=== PATIENT | female | born 2000 | race Asian ===

== ENCOUNTER 2025-05-09 06:20 | Inpatient (IN) ==
[2025-05-09 07:14] LABS: HCT - HEMATOCRIT 36.5 % (37.0-47.0); HGB - HEMOGLOBIN 11.9 g/dL (12.0-16.0); MEAN PLATELET VOLUME 9.6 fL (7.9-10.8); NRBC ABSOLUTE COUNT (AUTO) 0.00 x10^3/uL; NUCLEATED RED BLOOD CELLS AUTO 0.0 /100WBC; PLT - PLATELET COUNT 213 10^3/uL (130-450); RED CELL DISTRIBUTION WIDTH 14.5 % (12.0-15.0)
--- NOTE | 2025-05-09 07:26 | HISTORY & PHYSICAL EXAMINATION ---
Admit History Smoking Status: Never smoker Other Maternal History Other Maternal History: Patient is a 25-year-old G2, P1 at 39 weeks 0 days gestation presenting today for repeat low-transverse section and tubal ligation.. She has good movement. Denies loss of fluid. No FAYE/BV or RUQP. No vaginal bleeding. Denies nausea and vomiting. Denies urinary urgency or dysuria. All other symptoms reviewed and were negative except per HPI. Course LMP: 08/10/2024 KIM by LMP: 05/17/2025 Initial US Date 01/05/2025, US Age 21 weeks 2 days gestation, KIM by ultrasound: 05/16/2025 Final KIM: 05/17/2025 by LMP consistent with 21-week ultrasound Waiting additional records for early ultrasound. Insufficient weight gain. EFW 04/03- 2356.5g, 55.5th%ile Transfer of care No records available, Marginal cord insertion. 04/03 No previa Pre- Weight: 145lb BMI: 25.7 Blood type: A+ Antibody: Negative CBC: PLT 220 HCT 33.2 HGB 11.4 RUB: Immune VZV: Immune HBsAg: Neg HepC: NR RPR/AB-EIA: NR HIV: NR PAP:10/13/2024 per pt GC/CT: HSV: denies Genetic testing: MaterniT- Negative, AFP - Negative Covid: Flu: received this season FAS: 01/06/2025 Placenta: Posterior; w/cord 1.1 from margin Cord: 3VC LELE: 11.0 EFW: 408g 50gm OGCT: 108 TDAP: 8 Breast Pump:has one 3rd trimester H/H/PLT 9.9/29.5/234 RPR:NR GBS:Negative Delivery plan: Repeat C/S. Contraception: Condoms. Partner vasectomy. Will discuss tubal ligation again as she is having a repeat . Leaning towards this. Consents signed previously HPI Current : Vital Signs Temperature 36.5 C 05/09/25 06:54 Pulse Rate 100 05/09/25 06:54 Respiratory Rate 16 05/09/25 06:54 Blood Pressure 116/75 05/09/25 06:54 O2 Saturation 99 05/09/25 06:54 Meds/Allgy Home Medications Ambulatory Orders Medication Instructions Recorded Confirmed vits no.126-ferrous fum tab PO QDAY 12/23/24 05/03/25 28 mg iron-folic acid 800 mcg tablet (Classic ) ferrous sulfate 325 mg (65 mg 325 mg PO Q OTHER DAY 05/03/25 iron) tablet (Iron (ferrous sulfate)) Allergies Allergies Allergy/AdvReac Type Severity Reaction Status Date / Time No Known Drug Allergies Allergy Verified 04/26/25 14:26 PFSH Active Problems All Active Problems (Updated 05/09/25 @ 08:17 by Sarmad Rod MD) Encounter for sterilization (Acute) 39 weeks gestation of (Acute) Insufficient weight gain during (Acute) Maternal care for low transverse scar from previous delivery (Acute) Medical History Medical History (Updated 05/09/25 @ 08:17 by Sarmad Rod MD) Encounter for other specified screening Surgical History Surgical History Previous section Family History Family History Grandfather Lung cancer Social History Social History (Updated 04/19/25 @ 14:24 by Misti Yanez MA) Smoking Status: Never smoker Second hand tobacco smoke exposure: No Do you dip or chew tobacco?: No Living arrangement: At home Living Condition: With spouse/s.o. Level: Independent ETOH Use: None Substance Use: denies use Are you sexually active?: Yes Occupation - Current: Homemaker Review of Systems Status of ROS: 10 or more systems reviewed and unremarkable except as noted in history and below Physical Abdominal Exam Vital Signs: Temp Pulse Resp BP Pulse Ox 36.5 C 100 16 116/75 99 05/09/25 06:54 05/09/25 06:54 05/09/25 06:54 05/09/25 06:54 05/09/25 06:54 Other Notes Labor Progress Note/Additional Text: General: Alert, oriented, no acute distress Head: Normal cephalic atraumatic Eyes: PERRLA, extraocular motions intact. Respiratory: Normal rate of respiration. No accessory muscle use, normal respiratory effort. Abdomen: Gravid, nontender, nondistended Extremities: Normal range of motion Neuro: Oriented x3. Normal movements Psych: Appropriate mood and affect. Normal judgment and insight FHT: BPM baseline, moderate variability, accelerations present, no decelerations. Reactive NST [place]: Occasional Plan for Labor Plan For Labor I expect patient to be DC'd or transferred within 96 hours.: Yes Conclusion/Plan Problem List (1) Maternal care for low transverse scar from previous delivery: Plan: Plan for repeat low-transverse section and bilateral salpingectomy. section was recommended. Risks, benefits and alternatives were discussed including but not limited to infection, bleeding that may require blood products or hysterectomy for life saving measures, injury to surrounding organs including but not limited to bowel, bladder, ureters, tubes and ovaries and/or the baby. Should injury occur it could require longer/additional surgery to repair. The patient stated understanding and desired to proceed. All questions were answered posed by patient. 2 g cefazolin for surgical prophylaxis. (2) 39 weeks gestation of : Plan: As above (3) Encounter for sterilization: Plan: As above Lab Results 05/09/25 06:35
[2025-05-09] MEDS: LACTATED RINGERS 1,000 ML IV SCH ×3 (07:50→19:09)
[2025-05-09] MEDS ORDERED: CARBOPROST TROMETHAMINE 250 MCG/ML VIAL IM ONE (08:18)
[2025-05-09] MEDS ORDERED: METHYLERGONOVINE 0.2 MG/ML VIAL ONE (08:18)
[2025-05-09] MEDS ORDERED: PHENYLEPHRINE 10 MG/ML VIAL ONE (08:18)
--- NOTE | 2025-05-09 08:28 | ANESTHESIA PROCEDURE NOTE ---
Pre-Anesthesia VS, & Labs Diagnosis Surgical Diagnosis:: previous c/s, desires sterilization Procedure Procedure: repeat c/s with bilateral salpingectomy Vitals Vital Signs: Temp Pulse Resp BP Pulse Ox 36.7 C 95 16 116/75 99 05/09/25 07:22 05/09/25 07:22 05/09/25 06:54 05/09/25 07:22 05/09/25 06:54 NPO NPO: >8 hours Is Patient ?: Yes Lab Results Current Lab Results: Laboratory Tests 05/09/25 06:35: WBC 9.0, RBC 3.76 L, Hgb 11.9 L, Hct 36.5 L, MCV 97.1, MCH 31.6 H, MCHC 32.6, RDW 14.5, Plt Count 213, MPV 9.6, Neut # (Auto) 6.2, Lymph # (Auto) 1.8, [place] # (Auto) 0.7, Eos # (Auto) 0.1, Baso # (Auto) 0.0, Absolute Nucleated RBC 0.00, Nucleated RBC % 0.0, Blood Type A POSITIVE, Antibody Screen NEGATIVE Lab results reviewed: Yes 05/09/25 06:35 Meds/Allgy Home Medications Ambulatory Orders Medication Instructions Recorded Confirmed vits no.126-ferrous fum tab PO QDAY 12/23/24 05/03/25 28 mg iron-folic acid 800 mcg tablet (Classic ) ferrous sulfate 325 mg (65 mg 325 mg PO Q OTHER DAY 05/03/25 iron) tablet (Iron (ferrous sulfate)) Allergies Allergies Allergy/AdvReac Type Severity Reaction Status Date / Time No Known Drug Allergies Allergy Verified 04/26/25 14:26 PFSH Active Problems All Active Problems Encounter for sterilization (Acute) 39 weeks gestation of (Acute) Insufficient weight gain during (Acute) Maternal care for low transverse scar from previous delivery (Acute) Medical History Medical History Encounter for other specified screening Surgical History Surgical History Previous section Family History Family History Grandfather Lung cancer Social History Social History Smoking Status: Never smoker Second hand tobacco smoke exposure: No Do you dip or chew tobacco?: No Living arrangement: At home Living Condition: With spouse/s.o. Level: Independent ETOH Use: None Substance Use: denies use Are you sexually active?: Yes Occupation - Current: Homemaker POLST POLST CPR Status: Attempt Resuscitation (CPR) Level of Medical Intervention: Full Treatment Anesthesia Exam (Expanded) Exam General: Alert, Oriented x3 and Cooperative Dental: WNL Mouth Openin Fingerbreadth Neck Mobility: Normal Mallampati classification: I Thyromental Distance: 4-6 cm Respiratory: Lungs clear Cardiovascular: Regular rate Exam Exam Vital Signs: Vital Signs x48h Temp Pulse Pulse Resp BP BP Pulse Ox 05/09/25 07:22 36.7 C 95 116/75 05/09/25 06:54 36.5 C 100 16 116/75 99 Plan Plan Anesthesia Type: General Consent for Procedure(s) Verified and Reviewed: Yes Code Status: Attempt Resuscitation ASA Classification ASA classification: 2-Mild systemic disease Is this case an emergency?: No
[2025-05-09] MEDS ORDERED: MORPHINE PF 5 MG/10 ML VIAL IT ONE (08:38)
[2025-05-09] MEDS ORDERED: fentaNYL 100 MCG/2 ML VIAL IT ONE (08:38)
[2025-05-09] MEDS: ceFAZolin (2G) 2 GM in SODIUM CHLORIDE 0.9% MINIBAG 100 ML IV ONE (09:00)
[2025-05-09] MEDS: OXYTOCIN/SODIUM CHLORIDE 500 ML IV PRN (09:15)
[2025-05-09] MEDS ORDERED: ONDANSETRON ODT 4 MG TABLET TL PRN (10:15)
--- NOTE | 2025-05-09 10:17 | OPERATIVE REPORT ---
Operative Report General Admit Date: 05/09/25 Procedure Data: Operation Date: 05/09/25 08:30 Proposed Procedures p Section(Not Applicable) - Sarmad Rod MD s SALPINGCTOMY(Bilateral) - Sarmad Rod MD Actual Procedures p Section(Not Applicable) - Sarmad Rod MD s SALPINGCTOMY(Bilateral) - Sarmad Rod MD Anesthesia Type Spinal Case Staff Anesthesia Provider: Belkis Kurtz Assisting Provider: Jeni Jameson Times Into Recovery: 05/09/25 10:10 Procedure Start: 05/09/25 08:59 Procedure End: 05/09/25 10:02 Time out: 05/09/25 08:57 Pre-Op Diagnosis: 39 weeks gestation, previous low-transverse section, sterility Post Op Diagnosis: S/P repeat low-transverse section and bilateral salpingectomy Procedure Note Estimated Blood Loss (ml): 750 Pathology: Bilateral fallopian tubes Complications: None Other Other Information/Narrative: section was recommended. Risks, benefits and alternatives were discussed including but not limited to infection, bleeding that may require blood products or hysterectomy for life saving measures, injury to surrounding organs including but not limited to bowel, bladder, ureters, tubes and ovaries and/or the baby. Should injury occur it could require longer/additional surgery to repair. The patient stated understanding and desired to proceed. All questions were answered posed by patient. Prior to being taken to the OR, 2 grams of cefazolin IV was administered. The patient was taken to the operating room where regional anesthesia was found to be adequate. She was then prepared and draped in the usual sterile fashion in the dorsal supine position with a leftward tilt displacing the uterus. Moya was draining to gravity. SCDs were on bilateral lower extremities. Time out was taken. A pfannenstiel skin incision was then made with the scalpel and the wide scar was removed and the incision carried through to the underlying layer of fascia. The fascia was incised in the midline and the incision extended laterally with the Small scissors. The superior aspect of the facial incision was then grasped with the Becka clamps, elevated and the underlying rectus muscles dissected off sharply. Attention was then turned to the inferior aspect of this incision which in a similar fashion was grasped, elevated with the Becka clamps and the rectus muscle dissected off sharply. The rectus muscles were in the midline. The peritoneum identified, and entered blutly. The peritoneal incision was then extended superiorly and inferiorly with good visualization of the bladder. The bladder blade was inserted. The vesicouterine peritoneum was identified, gr asped with the pick-ups, and entered sharply with Metzenbaum scissors. This incision was then extended laterally and the bladder flap created digitally. The bladder blade was reinserted. The lower uterine segment was identified and was very thin and incised in a transverse fashion with the scalpel. The uterine incision was then extended bluntly laterally. Artificial rupture of membranes demonstrated clear fluid. The bladder blade was removed. The fetus was in a cephalic presentation. The infants head delivered atraumatically. The anterior shoulders were delivered followed by the posterior shoulders then the remainder of the body. The infants mouth and nose were bulb suctioned. The umbilical cord was clamped times two and cut. The was handed to the pediatric team. The placenta was removed with gentle traction. Oxytocin was added to the IV fluid and was allowed to run freely. The uterus was exteriorized and cleared of all clots and debris. The uterine incision was inspected and found to be without any extensions and was repaired with 0 Vicryl in a running, locked fashion. A second imbricating layer was performed. Upon inspection, the repaired hysterotomy was found to be hemostatic. The right fallopian tube was then grasped with a Samm clamp at the fimbriated end and in the middle of the tube. The LigaSure device was then used to separate the fimbriated end from the ovary and sequential coagulation and cutting progressing up the mesosalpinx until the area of the cornua. At that point it was coagulated and cut, transecting the tube from the uterus. The same procedure was performed on the left side. Both tubes were sent to pathology. The uterus was firm and returned to the abdomen. The gutters were cleared of all clots and debris. The muscle layer was examined and found to be hemostatic. The fascia was reapproximated with 0 Vicryl in a running fashion. The subcutaneous tissue was closed with 2-0 Vicryl. The skin was closed in a subcuticular fashion with 4-0 Monocryl. The patient tolerated the procedure well. Sponge, lap and needle counts were correct times three. The patient was taken to the recovery room in stable condition. I appreciate the assistance of ELIZABETH Head during this procedure, and the assistance in retraction, visualization, dissection, and overall assistance during the case were instrumental to the patient's wellbeing.
[2025-05-09] MEDS ORDERED: ATROPINE ABBOJECT 1 MG/10 ML SYRINGE IVP PRN (10:18)
[2025-05-09] MEDS ORDERED: NALOXONE 0.4 MG/ML VIAL IVP PRN ×2 (10:18→11:10)
[2025-05-09] MEDS ORDERED: MORPHINE 2 MG/ML CARPUJECT IVP PRN (10:18)
[2025-05-09] MEDS ORDERED: HYDROmorphone 0.5 MG/0.5 ML SYRINGE IVP PRN (10:18)
[2025-05-09] MEDS ORDERED: ONDANSETRON 4 MG/2 ML VIAL IVP PRN ×2 (10:18→11:10)
[2025-05-09] MEDS ORDERED: fentaNYL 100 MCG/2 ML VIAL IVP PRN (10:18)
[2025-05-09] MEDS ORDERED: NALBUPHINE 10 MG/ML AMP IVP PRN (11:10)
--- NOTE | 2025-05-09 11:10 | ANESTHESIA POST OP EVALUATION ---
Anesthesia Post Eval Post Anesthesia Eval Vitals: Last Vital Signs Temp 36.2 C L 05/09/25 10:42 Pulse 68 05/09/25 10:42 Resp 18 05/09/25 10:42 BP 119/70 05/09/25 10:42 Pulse Ox 96 05/09/25 10:42 CV Function Including HR & BP: Stable Pain Control: Satisfactory Nausea & Vomiting: Negative Mental Status: Baseline Respiratory Status: Airway Patent Hydration Status: Satisfactory Anesthesia Complications: None
[2025-05-09] MEDS: ACETAMINOPHEN 500 MG TABLET PO SCH (12:14)
[2025-05-09] MEDS: SIMETHICONE CHEW 80 MG TABLET PO PRN (12:15)
[2025-05-09] MEDS: oxyCODONE 5 MG TABLET PO PRN (12:15)
[2025-05-09] MEDS: CITRIC ACID/SODIUM CITRATE 15 ML UDC PO ONE (14:05)
[2025-05-09] MEDS: KETOROLAC 30 MG/ML VIAL IVP SCH (16:04)
[2025-05-10 05:13] LABS: HCT - HEMATOCRIT 32.2 % (37.0-47.0); HGB - HEMOGLOBIN 10.9 g/dL (12.0-16.0); MEAN PLATELET VOLUME 9.2 fL (7.9-10.8); NRBC ABSOLUTE COUNT (AUTO) 0.00 x10^3/uL; NUCLEATED RED BLOOD CELLS AUTO 0.0 /100WBC; PLT - PLATELET COUNT 162 10^3/uL (130-450); RED CELL DISTRIBUTION WIDTH 14.5 % (12.0-15.0)
--- NOTE | 2025-05-10 08:59 | PROVIDER PROGRESS NOTE ---
Subjective Subjective Subjective: Subjective Patient reports she is doing well. Lochia appropriate. Denies heavy bleeding. Ambulating. Pelvic and abdominal pain well-controlled. Tolerating oral intake. Diet: Regular. Voiding without difficulty. Passing flatus. Denies BM. Patient is bonding with baby in room Breast feeding going well. Denies feeling lightheaded, dizzy or excessively fatigued. Objective General: Alert, oriented, no apparent distress. Cardiovascular: Regular rate. Regular rhythm. Lungs: No increased work of breathing. Abdomen: Uterus firm. Below umbilicus. No guarding or rebound. Extremities: No pain on palpation. No cords palpated. Distal pulses intact. Incision: Clean, dry, and intact. Current Medications Current Medications Current Medications: Current Medications Generic Name Dose Route Start Last Admin Trade Name Freq PRN Reason Stop Dose Admin Acetaminophen 1,000 mg 05/09/25 12:00 05/10/25 07:34 Acetaminophen 500 Mg Tablet PO 1,000 mg Q6HR SIRISHA Administration Docusate Sodium 100 mg 05/10/25 09:00 Docusate Sodium 100 Mg Capsule PO DAILY SIRISHA Lactated Ringer's 1,000 mls @ 125 mls/hr 05/09/25 08:00 05/09/25 16:41 Lr IV 125 mls/hr .Q8H SIRISHA Administration Oxytocin/Sodium Chloride 500 mls @ 999 mls/hr 05/09/25 10:15 05/09/25 14:11 Pitocin/Sodium Chloride IV Infused PRN PRN Titration POST- HEMORR PREVENTION Protocol 999 MILLIUNIT/MIN Lactated Ringer's 1,000 mls @ 100 mls/hr 05/09/25 11:00 05/09/25 19:09 Lr IV Not Given .Q10H SIRISHA Ibuprofen 600 mg 05/10/25 12:00 Ibuprofen 600 Mg Tablet PO Q6HR SIRISHA Nalbuphine HCl 5 mg 05/09/25 11:10 Nalbuphine 10 Mg/Ml Amp IVP 05/10/25 11:10 Q4H PRN ITCHING Naloxone HCl 0.1 mg 05/09/25 11:10 Naloxone 0.4 Mg/Ml Vial IVP 05/10/25 11:10 Q2M PRN RR < 8 Ondansetron HCl 4 mg 05/09/25 10:15 Ondansetron Odt 4 Mg Tablet TL Q4HR PRN Nausea / Vomiting Ondansetron HCl 4 mg 05/09/25 11:10 Ondansetron 4 Mg/2 Ml Vial IVP 05/10/25 11:10 Q6HR PRN Nausea / Vomiting Oxycodone HCl 5 mg 05/09/25 10:15 05/09/25 12:15 Oxycodone 5 Mg Tablet PO 5 mg Q4HR PRN Administration Moderate Pain (Level 4-6) Simethicone 80 mg 05/09/25 10:15 05/10/25 07:34 Simethicone Chew 80 Mg Tablet PO 80 mg TID PRN Administration Gas Objective Vital Signs/Intake & Output Vital Signs: Vital Signs x48h Temp Pulse Resp BP Pulse Ox 05/10/25 07:38 37.0 C 76 14 122/70 99 05/10/25 03:58 36.8 C 74 17 117/63 05/10/25 01:15 36.9 C 80 16 113/64 98 Intake & Output: Intake & Output 05/07/25 05/08/25 05/09/25 05/10/25 23:59 23:59 23:59 23:59 Intake Total 2200 / 2200 Output Total 2205 / 2205 1000 / 1000 Balance -5 / -5 -1000 / -1000 Weight (kg) 176 lb 5.917 oz Lab Results 05/10/25 05:06 Other Labs: Lab Results x24hrs 05/10/25 Range/Units 05:06 WBC 9.3 (4.8-10.8) x10^3/uL RBC 3.32 L (4.20-5.40) 10^6/uL Hgb 10.9 L (12.0-16.0) g/dL Hct 32.2 L (37.0-47.0) % MCV 97.0 (81.0-99.0) fL MCH 32.8 H (27.0-31.0) pg MCHC 33.9 (32.0-36.0) g/dL RDW 14.5 (12.0-15.0) % Plt Count 162 (130-450) 10^3/uL MPV 9.2 (7.9-10.8) fL Neut # (Auto) 6.5 (1.5-6.6) 10^3/uL Lymph # (Auto) 1.9 (1.5-3.5) 10^3/uL [place] # (Auto) 0.8 (0.0-1.0) 10^3/uL Eos # (Auto) 0.1 (0.0-0.7) 10^3/uL Baso # (Auto) 0.0 (0.0-0.1) 10^3/uL Absolute Nucleated RBC 0.00 x10^3/uL Nucleated RBC % 0.0 /100WBC Assessment/Plan Problem List (1) care and examination of lactating mother: Impression: Routine care. Dissipate discharge in 1 to 2 days. (2) Delivery by section: Impression: Encouraged slight ambulation. Expect possible worse pain today than yesterday she gets more active. Should peak today. (3) Live from [place] : Impression: Routine care as above.
[2025-05-10] MEDS: IBUPROFEN 600 MG TABLET PO SCH (11:29)
[2025-05-10] MEDS: DOCUSATE SODIUM 100 MG CAPSULE PO SCH (14:44)
--- NOTE | 2025-05-11 08:34 | PROVIDER PROGRESS NOTE ---
Subjective Subjective Subjective: Subjective Patient reports she is doing well. Lochia appropriate. Denies heavy bleeding. Ambulating. Pelvic and abdominal pain well-controlled. Tolerating oral intake. Diet: Regular. Voiding without difficulty. Passing flatus. Denies BM. Patient is bonding with baby in room Breast feeding going well, but may need to start supplementing with feeding. Has had increased weight loss Denies feeling lightheaded, dizzy or excessively fatigued. Control: Status post tubal ligation Objective General: Alert, oriented, no apparent distress. Cardiovascular: Regular rate. Regular rhythm. Lungs: No increased work of breathing. Abdomen: Uterus firm. Below umbilicus. No guarding or rebound. Incision: Clean, dry, and intact. Current Medications Current Medications Current Medications: Current Medications Generic Name Dose Route Start Last Admin Trade Name Freq PRN Reason Stop Dose Admin Acetaminophen 1,000 mg 05/09/25 12:00 05/11/25 05:04 Acetaminophen 500 Mg Tablet PO 1,000 mg Q6HR SIRISHA Administration Docusate Sodium 100 mg 05/10/25 09:00 05/11/25 07:55 Docusate Sodium 100 Mg Capsule PO 100 mg DAILY SIRISHA Administration Lactated Ringer's 1,000 mls @ 125 mls/hr 05/09/25 08:00 05/10/25 00:41 Lr IV Infused .Q8H SIRISHA Infusion Oxytocin/Sodium Chloride 500 mls @ 999 mls/hr 05/09/25 10:15 05/09/25 14:11 Pitocin/Sodium Chloride IV Infused PRN PRN Titration POST- HEMORR PREVENTION Protocol 999 MILLIUNIT/MIN Lactated Ringer's 1,000 mls @ 100 mls/hr 05/09/25 11:00 05/09/25 19:09 Lr IV Not Given .Q10H SIRISHA Ibuprofen 600 mg 05/10/25 10:30 05/11/25 07:55 Ibuprofen 600 Mg Tablet PO 600 mg Q6H SIRISHA Administration Ondansetron HCl 4 mg 05/09/25 10:15 Ondansetron Odt 4 Mg Tablet TL Q4HR PRN Nausea / Vomiting Oxycodone HCl 5 mg 05/09/25 10:15 05/11/25 05:03 Oxycodone 5 Mg Tablet PO 5 mg Q4HR PRN Administration Moderate Pain (Level 4-6) Simethicone 80 mg 05/09/25 10:15 05/11/25 07:55 Simethicone Chew 80 Mg Tablet PO 80 mg TID PRN Administration Gas Objective Vital Signs/Intake & Output Vital Signs: Vital Signs x48h Temp Pulse Resp BP Pulse Ox 05/11/25 07:58 36.8 C 75 14 121/79 99 05/11/25 05:07 36.8 C 68 16 112/74 98 Intake & Output: Intake & Output 05/08/25 05/09/25 05/10/25 05/11/25 23:59 23:59 23:59 23:59 Intake Total 2200 / 2200 1500 / 1500 Output Total 2205 / 2205 1000 / 1000 Balance -5 / -5 500 / 500 Weight (kg) 176 lb 5.917 oz Lab Results 05/10/25 05:06 Assessment/Plan Problem List (1) care and examination of lactating mother: Impression: Routine care. Baby has had weight loss, will likely start supplementing today. Due to difficulty feeding, anticipate discharge tomorrow (2) Delivery by section: Impression: Routine postop care. Doing very well pain field. Continue current management (3) Live from [place] : Impression: As above
[2025-05-12 10:30] VITALS: BP 123/89; TEMP 98.4; O2SAT 99
--- NOTE | 2025-05-12 10:55 | Labor Flowsheet ---
Labor Flowsheet Datetime Report Generated by CPN: 05/12/2025 10:55 Datetime: 05/09/2025 12:35 VAGINAL EXAM Membranes Ruptured Date/Time: 05/09/2025 09:10 Membranes Rupture Method: Artificial Amniotic Fluid Color: Clear
--- NOTE | 2025-05-15 19:51 | Discharge Summary ---
"Discharge Summary Admit Date: 05/09/25 Discharge Date: 05/12/25 Discharging Provider: Kamini Banda MD Code Status: Attempt Resuscitation DIAGNOSES Admission Diagnoses: 39 weeks, prior c section, undesired fertility. Discharge Diagnoses with Status of Each Condition: same, delivered without complication, sterilization procedure performed. HPI History of Present Illness: transfered care to us during . prior c section. no complications. CONSULTS | PROCEDURES Procedures: Low transverse c section and bilateral salpingectomies HOSPITAL COURSE Hospital Course: Patient admitted and above procedure performed without complication. Discharged home on pod # 3. ALLERGIES Allergies Allergy/AdvReac Type Severity Reaction Status Date / Time No Known Drug Allergies Allergy Verified 05/09/25 14:02 MEDICATIONS Ambulatory Orders Medication Instructions Recorded Confirmed vitamins with calcium 1 tab PO DAILY 05/10/25 05/10/25 no.72-iron 27 mg-folic acid 1 mg tablet (M-Asa Plus) acetaminophen 325 mg capsule 325 - 650 mg (1 - 2 x 325 mg) PO 05/12/25 Q4H PRN pain #60 caps ibuprofen 600 mg tablet 600 mg PO Q6H PRN pain #30 t abs 05/12/25 oxycodone 5 mg tablet 5 mg PO Q4H PRN pain #10 tab s 05/12/25 PHYSICAL EXAM AT DISCHARGE Vital Signs: stable. General Appearance: positive No acute distress and Alert Cardiovascular: positive Regular rate & rhythm Abdomen: positive Non-tender and Other (wound healing well. steri strips in place.) Skin: positive Color nml and No rash Extremities: positive Non-tender Neurologic/Psychiatric: positive Oriented x3 LABS 05/10/25 05:06 FOLLOW UP Follow Up: next week TIME SPENT Time Spent in Discharge (Minutes): 15 Discharge Plan Discharge Patient Disposition: 01 Home, Self Care Condition: Good Prescriptions: Continued ibuprofen 600 mg tablet 600 mg PO Q6H PRN (Reason: pain) Qty: 30 1RF oxycodone 5 mg tablet 5 mg PO Q4H PRN (Reason: pain) Qty: 10 0RF acetaminophen 325 mg capsule 325 - 650 mg PO Q4H PRN (Reason: pain) Qty: 60 1RF M- Plus 27 mg iron- 1 mg tablet 1 tab PO DAILY Activity Restrictions/Additional Instructions: nothing in vagina for 6 week. no lifting more than 15 pounds for 6 weeks. OK to shower, no bath for 2 weeks. Constipation is common. Be sure to eat lots of fruits and veggie, drink lots of water. Coffee can be helpful if you like it and 1 cup is fine for baby Diet: Regular Assessment: doing great. ready for discharge home. Print Language: Faroese Patient Instructions: Care ... Follow-up Care: Sarmad Rod MD [Provider Admit Priv/Credential, Obstetrics/Gynecology] Vitals documented within 30 minutes of discharge?: Yes"
== END 2025-05-12 10:50 | disposition home or self-care (01) | DRG 785 ==
LOC: FBP 06:20
PROVIDERS: ADMIT Obstetrics & Gynecology; ATTEND Obstetrics & Gynecology
DX: Z30.2 Encounter for sterilization; O34.211 Maternal care for low transverse scar from previous cesarean delivery; O26.10 Low weight gain in pregnancy, unspecified trimester; N85.8 Other specified noninflammatory disorders of uterus; Z37.0 Single live birth; Z3A.39 39 weeks gestation of pregnancy